=== PATIENT | female | born 1960 | race Hispanic/Latino ===

== ENCOUNTER 2018-12-01 07:39 | Emergency (ER) | payer OTHER ==
--- OUTSIDE RECORDS SUMMARY | 2018-12-01 07:41 | XMS REPORT ---
:1960 Author Organization e[employer]Works Care Team Providers Name Role Phone Ramos, Na Provider Role Unavailable Allergies No Known Allergies Problems Problem Type Condition Code Onset Dates Condition Status Problem Disturbance of skin sensation R20.9 Active Problem HTN (hypertension) I10 Active Problem Vertigo R42 Active Problem Elevated LFTs R94.5 Active Problem Multiple acquired skin tags L91.8 Active Problem Fatty liver K76.0 Active Problem Calculus of kidney and ureter N20.2 Active Problem Other irritable bowel syndrome K58.8 Active Problem Hyperlipidemia E78.5 Active Problem Dizziness R42 Active Problem Family history of liver cancer Z80.0 Active Problem Hypothyroidism, unspecified E03.9 Active Problem Gastro-esophageal reflux disease with K21.0 Active esophagitis Problem Mixed irritable bowel syndrome K58.2 Active Problem Diabetes mellitus type 2, E11.9 Active uncontrolled, without complications Medications No Known Medications Results No Known Results Summary Purpose [employer] Submission
--- OUTSIDE RECORDS SUMMARY | 2018-12-01 07:41 | XMS REPORT ---
:1960 Author Organization [employer]Works Care Team Providers Name Role Phone Ramos, Na Provider Role Unavailable Allergies, Adverse Reactions, Alerts Substance Reaction Event Type tetracycline Info Not Available Drug Allergy codeine Info Not Available Drug Allergy Problems Problem Type Condition Code Onset Dates [...] Hyperlipidemia E78.5 Active Problem Dizziness R42 Active Assessment Multiple acquired skin tags L91.8 Active Problem Family history of liver cancer Z80.0 Active Problem Hypothyroidism, unspecified E03.9 Active Problem Gastro-esophageal reflux disease with K21.0 Active esophagitis Problem Mixed irritable bowel syndrome K58.2 Active Problem Diabetes mellitus type 2, E11.9 Active uncontrolled, without complications Medications Medication Code Code Instructions Start End Status Dosage System Date Date Allopurinol [facility] 49554546892 100 MG Orally Active 1 tablet Once a day Simvastatin ND 66920936394 20 MG Orally Active 1 tablet Once a day in the evening Levothyroxine ND 61459144479 125 MCG Orally Active 1 tablet Sodium Once a day on an empty stomach in the morning Altace ND 84897192564 2.5 MG Orally Active 1 capsule Once a day Levothyroxine ND 70219870573 100 MCG Orally Active 1 tablet Sodium Once a day on an empty stomach in the morning Flonase ND 03654936983 50 MCG/ACT Active 1 spray in Nasally Once a each day nostril Ramipril ND 58334765465 2.5 MG Orally Active 1 capsule Once a day Kombiglyze XR ND 76119534046 5-1000 MG Active 1 tablet Orally Once a with day evening meal Results Name Result Date Reference Range Unit Abnormality Flag TISSUE PATHOLOGY Summary Purpose [employer]ClinicalWorks Submission
--- OUTSIDE RECORDS SUMMARY | 2018-12-01 07:41 | XMS REPORT ---
[...] Start End Status Dosage System Date Date Levothyroxine [facility] 11269600650 100 MCG Orally Active 1 tablet Sodium Once a day on an empty stomach in the morning Results No Known Results Summary Purpose [employer]ClinicalWorks Submission
--- OUTSIDE RECORDS SUMMARY | 2018-12-01 07:41 | XMS REPORT ---
[...] R42 Active Problem Elevated LFTs R94.5 Active Assessment Mixed irritable bowel syndrome K58.2 Active Problem Multiple acquired skin tags L91.8 Active Assessment Fatty liver K76.0 Active Assessment Elevated LFTs R94.5 Active Problem Fatty liver K76.0 Active Problem Calculus of kidney and ureter N20.2 Active Problem Other irritable bowel syndrome K58.8 Active Problem Hyperlipidemia E78.5 Active Problem Dizziness R42 Active Assessment HTN (hypertension) I10 Active Assessment Diabetes mellitus type 2, E11.9 Active uncontrolled, without complications Assessment Hypothyroidism, unspecified E03.9 Active Assessment Hyperlipidemia E78.5 Active Problem Family history of liver cancer Z80.0 Active Problem Hypothyroidism, unspecified E03.9 Active Problem Gastro-esophageal reflux disease with K21.0 Active esophagitis Assessment Multiple acquired skin tags L91.8 Active Problem Mixed irritable bowel syndrome K58.2 Active Problem Diabetes mellitus type 2, E11.9 Active uncontrolled, without complications Medications Medication Code System Code Instructions Start Date End Date Status Dosage Ramipril NDC 0 Active not defined Results No Known Results Summary Purpose [employer]ClinicalWorks Submission
[2018-12-01] MEDS ORDERED: NA CHLORIDE 0.9% 1,000 ML ONE (08:21)
[2018-12-01] MEDS ORDERED: ONDANSETRON 4 MG/2 ML VIAL ONE (08:23)
[2018-12-01 08:26] LABS: Absolute Lymphocytes (CBC) 2.3 K/uL (0.7-4.9); Absolute Monocytes 0.6 K/uL (0.1-1.3); Absolute Neutrophil 9.7 K/uL (1.8-8.0); Basophils % 0.5 % (0-1.3); Eosinophils % 0.6 % (0-4.4); Hematocrit 43.1 % (36.0-45.0); Lymphocytes % 18.2 % (15.3-44.8); MPV 9.6 fL (7.6-11.3); Monocytes % 4.8 % (3.3-12.3); RBC Red Blood Cell Count 4.86 M/uL (3.86-4.86)
[2018-12-01 09:03] LABS: Potassium 3.8 mmol/L (3.5-5.1)
--- NOTE | 2018-12-01 09:49 | RAD REPORT ---
EXAM DESCRIPTION: CTAbdomen Pelvis W Contrast - 12/01/2018 9:35 am CLINICAL HISTORY: Abdominal pain. iv contrast only;Abd pain COMPARISON: Abdomen Pelvis W Contrast dated 02/14/2018; CT-STONE PROTOCOL dated 01/28/2010 TECHNIQUE: Biphasic CT imaging of the abdomen and pelvis was performed with 100 ml non-ionic IV cont rast. All CT scans are performed using dose optimization technique as appropriate and may include automated exposure control or mA/KV adjustment according to patient size. FINDINGS: Emphysematous changes are present in the lung bases with mild linear subsegmental atelecta sis is present. Mild fatty liver is present. No focal mass or intrahepatic biliary dilatation. Spleen is surgically a bsent with prominent splenule in the left upper quadrant. The pancreas shows fullness in the tail reg ion, unchanged. No pancreatic ductal dilatation. The adrenal glands are normal. Bilateral renal stone s are present without hydronephrosis. No bowel obstruction, free air, free fluid or abscess. The appendix appears absent. Inflammatory piper ges are seen surrounding a prominent diverticulum in the left lower quadrant sigmoid colon. The regio n of inflamed sigmoid colon measures about 5 cm in length. No abscess present. No evidence of signif icant lymphadenopathy. No suspicious bony findings. IMPRESSION: Mild left lower quadrant acute sigmoid diverticulitis without abscess.
--- NOTE | 2018-12-01 09:58 | EDPHYS ---
Physician Documentation [facility] Name: Marcela Palomo Age: 58 yrs Sex: Female : 1960 Arrival Date: 12/01/2018 Time: 07:41 Bed 5 Private MD: Jordyn Ramos ED Physician Vee Lazaro HPI: 12/01 09:56 This 58 yrs old Female presents to ER via Ambulatory with complaints of kb Abdominal Pain. 09:56 The patient presents with abdominal pain in the left lower quadrant. Onset: The kb symptoms/episode began/occurred yesterday. The symptoms do not radiate. Associated signs and symptoms: none. The symptoms are described as achy. Modifying factors: The symptoms are alleviated by nothing, the symptoms are aggravated by pressure. Severity of pain: At its worst the pain was moderate in the emergency department the pain is unchanged. The patient has not experienced similar symptoms in the past. The patient has not recently seen a physician. Historical: - Allergies: 07:58 codeine (nausea/vomiting); ss - PMHx: 07:58 Diabetes - NIDDM; IBS; Kidney stones; Diverticulitis; ss - PSHx: 07:58 splenectomy; Appendectomy; Hysterectomy; ss - Immunization history:: Adult Immunizations up to date. - Social history:: Smoking status: Patient/guardian denies using tobacco. - Ebola Screening: : Patient denies exposure to infectious person Patient denies travel to an Ebola-affected area in the 21 days before illness onset. ROS: 09:55 Constitutional: Negative for fever, chills, and weight loss, Cardiovascular: Negative kb for chest pain, palpitations, and edema, Respiratory: Negative for shortness of breath, cough, wheezing, and pleuritic chest pain, Back: Negative for injury and pain, : Negative for injury, bleeding, discharge, and swelling, MS/Extremity: Negative for injury and deformity, Skin: Negative for injury, rash, and discoloration, Neuro: Negative for headache, weakness, numbness, tingling, and seizure. 09:55 Abdomen/GI: Positive for abdominal pain, Negative for nausea, vomiting, and diarrhea, constipation, abdominal cramps, abdominal distension, anorexia. Exam: 09:55 Constitutional: This is a well developed, well nourished patient who is awake, alert, kb and in no acute distress. Head/Face: Normocephalic, atraumatic. Chest/axilla: Normal chest wall appearance and motion. Nontender with no deformity. No lesions are appreciated. Cardiovascular: Regular rate and rhythm with a normal S1 and S2. No gallops, murmurs, or rubs. Normal PMI, no JVD. No pulse deficits. Respiratory: Lungs have equal breath sounds bilaterally, clear to auscultation and percussion. No rales, rhonchi or wheezes noted. No increased work of breathing, no retractions or nasal flaring. Back: No spinal tenderness. No costovertebral tenderness. Full range of motion. Skin: Warm, dry with normal turgor. Normal color with no rashes, no lesions, and no evidence of cellulitis. MS/ Extremity: Pulses equal, no cyanosis. Neurovascular intact. Full, normal range of motion. Neuro: Awake and alert, GCS 15, oriented to person, place, time, and situation. Cranial nerves II-XII grossly intact. Motor strength 5/5 in all extremities. Sensory grossly intact. Cerebellar exam normal. Normal gait. 09:55 Abdomen/GI: Inspection: abdomen appears normal, Bowel sounds: normal, in all quadrants, Palpation: soft, in all quadrants, moderate abdominal tenderness, in the left lower quadrant. Vital Signs: 07:58 BP 136 / 81; Pulse 110; Resp 16; Temp 98.9(O); Pulse Ox 95% on R/A; Weight 92.53 kg; ss Height 5 ft. 1 in. (154.94 cm); Pain 10/10; 08:29 BP 132 / 85; Pulse 96; Resp 17; Pulse Ox 95% on R/A; ss 09:06 BP 127 / 81; Pulse 93; Resp 18; Pulse Ox 97% on R/A; ca1 09:40 BP 137 / 74; Pulse 92; Resp 18; Pulse Ox 97% ; ca1 07:58 Body Mass Index 38.55 (92.53 kg, 154.94 cm) ss MDM: 07:44 Patient medically screened. kb 09:52 Data reviewed: vital signs, nurses notes. Data interpreted: Pulse oximetry: on room air kb is 97 %. Interpretation: normal. Counseling: I had a detailed discussion with the patient and/or guardian regarding: the historical points, exam findings, and any diagnostic results supporting the discharge/admit diagnosis, lab results, radiology results, the need for outpatient follow up, a family practitioner, to return to the emergency department if symptoms worsen or persist or if there are any questions or concerns that arise at home. ED course: Pt given the option of admission or trial outpatient antibiotics first. Pt would like to go home. Will send home with cipro and flagyl. Pt given instructions to return for worsening symptoms/pain, inability to tolerate medications or any other concerns. Verbal understanding received. . 12/01 07:54 Order name: Basic Metabolic Panel; Complete Time: 09:08 kb 12/01 07:54 Order name: CBC with Diff; Complete Time: 08:30 kb 12/01 07:54 Order name: CT Abd/Pelvis - W/Contrast; Complete Time: 09:50 kb 12/01 08:02 Order name: Urine Dipstick--Ancillary (enter results) bd 12/01 07:54 Order name: IV Saline Lock; Complete Time: 08:09 kb 12/01 07:54 Order name: Labs collected and sent; Complete Time: 08:09 kb 12/01 07:54 Order name: Urine Dipstick-Ancillary (obtain specimen); Complete Time: 08:04 kb Administered Medications: 07:58 CANCELLED (Physician Discretion): TORadol 30 mg IVP once kb 08:12 Drug: NS 0.9% 1000 ml Route: IV; Rate: 1000 ml; Site: right antecubital; ca1 09:10 Follow up: Response: No adverse reaction; IV Status: Completed infusion ca1 08:13 Drug: Zofran 4 mg Route: IVP; Site: right antecubital; ca1 09:51 Follow up: Response: No adverse reaction; Nausea is decreased ca1 09:55 Drug: Flagyl 500 mg Route: PO; ca1 10:07 Follow up: Response: Medication administered at discharge. ca1 09:58 Drug: Cipro 500 mg Route: PO; ca1 10:06 Follow up: Response: Medication administered at discharge. ca1 Disposition: 17:43 Co-signature as Attending Physician, Vee Lazaro MD. ma2 Disposition: 12/01/18 09:57 Discharged to Home. Impression: Diverticulitis of intestine, part unspecified, without perforation or abscess without bleeding. - Condition is Stable. - Discharge Instructions: Diverticulitis, [id number]. - Prescriptions for Flagyl 500 mg Oral Tablet - take 1 tablet by ORAL route every 8 hours for 10 days; 30 tablet. Zofran 4 mg Oral Tablet - take 1 tablet by ORAL route every 6 hours As needed; 20 tablet. Cipro 500 mg Oral Tablet - take 1 tablet by ORAL route every 12 hours for 10 days; 20 tablet. Tramadol 50 mg Oral Tablet - take 1 tablet by ORAL route every 8 hours as needed; 12 tablet. - Medication Reconciliation Form, Thank You Letter, Antibiotic Education, Prescription Opioid Use form. - Follow up: Emergency Department; When: As needed; Reason: Worsening of condition. Follow up: Private Physician; When: 2 - 3 days; Reason: Recheck today's complaints, Continuance of care, Re-evaluation by your physician. Signatures: Dispatcher [employer] EDMS Shirley Elkins, YOSSI-C [employer]ICE PRESIDENT FOR [employer]STRUCTION-Batsheva Negron RN RN aa5 Anisha Dumont RN RN ss Vee Lazaro MD MD ma2 Ruth Weber RN RN ca1 Corrections: (The following items were deleted from the chart) 07:58 07:58 TORadol 30 mg IVP once ordered. kb kb 10:13 09:57 12/01/2018 09:57 Discharged to Home. Impression: Diverticulitis of intestine, aa5 part unspecified, without perforation or abscess without bleeding. Condition is Stable. Forms are Medication Reconciliation Form, Thank You Letter, Antibiotic Education, Prescription Opioid Use. Follow up: Emergency Department; When: As needed; Reason: Worsening of condition. Follow up: Private Physician; When: 2 - 3 days; Reason: Recheck today's complaints, Continuance of care, Re-evaluation by your physician. kb
--- NOTE | 2018-12-01 09:58 | ER ---
Nurse's Notes [facility] Name: Marcela Palomo Age: 58 yrs Sex: Female : 1960 Arrival Date: 12/01/2018 Time: 07:41 Bed 5 Private MD: Jordyn Ramos Diagnosis: Diverticulitis of intestine, part unspecified, without perforation or abscess without bleeding Presentation: 12/01 07:55 Presenting complaint: Patient states: LLQ pain that began yesterday. PT reports a ss history of diverticulitis. Transition of care: patient was not received from another setting of care. Onset of symptoms was November 30, 2018. Risk Assessment: Do you want to hurt yourself or someone else? Patient reports no desire to harm self or others. Initial Sepsis Screen: Does the patient meet any 2 criteria? No. Patient's initial sepsis screen is negative. Does the patient have a suspected source of infection? No. Patient's initial sepsis screen is negative. Care prior to arrival: None. 07:55 Method Of Arrival: Ambulatory ss 07:55 Acuity: THERESA 3 ss Historical: - Allergies: 07:58 codeine (nausea/vomiting); ss - PMHx: 07:58 Diabetes - NIDDM; IBS; Kidney stones; Diverticulitis; ss - PSHx: 07:58 splenectomy; Appendectomy; Hysterectomy; ss - Immunization history:: Adult Immunizations up to date. - Social history:: Smoking status: Patient/guardian denies using tobacco. - Ebola Screening: : Patient denies exposure to infectious person Patient denies travel to an Ebola-affected area in the 21 days before illness onset. Screenin:19 Abuse screen: Denies threats or abuse. Denies injuries from another. Nutritional ca1 screening: No deficits noted. Tuberculosis screening: No symptoms or risk factors identified. Fall Risk None identified. Assessment: 08:19 General: Appears in no apparent distress. uncomfortable, Behavior is calm, cooperative. ca1 Pain: Complains of pain in right lower quadrant and left lower quadrant Pain does not radiate. Pain currently is 10 out of 10 on a pain scale. Quality of pain is described as crampy, Pain began 2-3 days ago. Is intermittent, Aggravated by bending over. Neuro: Level of Consciousness is awake, alert, obeys commands, Oriented to person, place, time, situation. Cardiovascular: Heart tones S1 S2 present Capillary refill < 3 seconds Patient's skin is warm and dry. Respiratory: Airway is patent Trachea midline Respiratory effort is even, unlabored, Respiratory pattern is regular, symmetrical, Breath sounds are clear bilaterally. GI: Abdomen is round non-distended, Bowel sounds present X 4 quads. Abd is soft Abdomen is tender to palpation in right lower quadrant and left lower quadrant Reports nausea, Patient currently denies diarrhea. : No signs and/or symptoms were reported regarding the genitourinary system. EENT: No signs and/or symptoms were reported regarding the EENT system. Derm: Skin is intact, is healthy with good turgor, Skin is pink, warm \T\ dry. Musculoskeletal: Circulation, motion, and sensation intact. 09:06 Reassessment: Patient appears in no apparent distress at this time. Patient and/or ca1 family updated on plan of care and expected duration. Pain level reassessed. Patient is alert, oriented x 3, equal unlabored respirations, skin warm/dry/pink. 09:39 Reassessment: Patient appears in no apparent distress at this time. Patient is alert, ca1 oriented x 3, equal unlabored respirations, skin warm/dry/pink. Patient back from CT. 10:11 Reassessment: Patient is alert, oriented x 3, equal unlabored respirations, skin aa5 warm/dry/pink. Vital Signs: 07:58 BP 136 / 81; Pulse 110; Resp 16; Temp 98.9(O); Pulse Ox 95% on R/A; Weight 92.53 kg; ss Height 5 ft. 1 in. (154.94 cm); Pain 10/10; 08:29 BP 132 / 85; Pulse 96; Resp 17; Pulse Ox 95% on R/A; ss 09:06 BP 127 / 81; Pulse 93; Resp 18; Pulse Ox 97% on R/A; ca1 09:40 BP 137 / 74; Pulse 92; Resp 18; Pulse Ox 97% ; ca1 07:58 Body Mass Index 38.55 (92.53 kg, 154.94 cm) ED Course: 07:41 Patient arrived in ED. dl4 07:41 Jordyn Ramos MD is Private Physician. dl4 07:44 Shirley Elkins [facility]C [facility] kb 07:44 Vee Lazaro MD is Attending Physician. kb 07:55 Anisha Dumont, ADITYA is Primary Nurse. ss 07:56 Triage completed. ss 07:58 Arm band placed on right wrist. ss 08:05 Patient has correct armband on for positive identification. Placed in gown. Bed in low ca1 position. Call light in reach. Side rails up X 1. 08:05 Pulse ox on. NIBP on. Warm blanket given. ca1 08:06 Initial lab(s) drawn, by me, sent to lab. Inserted saline lock: 20 gauge in right ca1 antecubital area, using aseptic technique. Blood collected. 08:32 Radiology exam delayed due to lab results not completed at this time. (BUN/Creatinine). kw1 09:29 CT completed. Patient tolerated procedure well. Patient moved to CT via wheelchair. sj Patient moved back from CT. 09:36 CT Abd/Pelvis - W/Contrast In Process Unspecified. EDMS 10:11 No provider procedures requiring assistance completed. IV discontinued, intact, aa5 bleeding controlled, No redness/swelling at site. Pressure dressing applied. Administered Medications: 07:58 CANCELLED (Physician Discretion): TORadol 30 mg IVP once kb 08:12 Drug: NS 0.9% 1000 ml Route: IV; Rate: 1000 ml; Site: right antecubital; ca1 09:10 Follow up: Response: No adverse reaction; IV Status: Completed infusion ca1 08:13 Drug: Zofran 4 mg Route: IVP; Site: right antecubital; ca1 09:51 Follow up: Response: No adverse reaction; Nausea is decreased ca1 09:55 Drug: Flagyl 500 mg Route: PO; ca1 10:07 Follow up: Response: Medication administered at discharge. ca1 09:58 Drug: Cipro 500 mg Route: PO; ca1 10:06 Follow up: Response: Medication administered at discharge. ca1 Outcome: 09:57 Discharge ordered by . kb 10:12 Discharged to home ambulatory, with family. aa5 10:12 Condition: stable 10:12 Discharge instructions given to patient, Instructed on discharge instructions, follow up and referral plans. medication usage, Demonstrated understanding of instructions, follow-up care, medications, Prescriptions given X 4. 10:13 Patient left the ED. aa5 Signatures: Dispatcher [employer] EDMS Shirley Elkins, FÉLIXC YOSSI-Jessika Monique Audri, RN RN aa5 Anisha Dumont RN RN ss Roxie Gan1 Mo Gross dl4 Ruth Weber RN RN ca1
[2018-12-01] MEDS ORDERED: metroNIDAZOLE 500 MG TABLET ONE (10:14)
[2018-12-01] MEDS ORDERED: CIPROFLOXACIN HCL 500 MG TAB ONE (10:14)
[2018-12-01 10:35] VITALS: TEMP 98.9
[2018-12-01 10:38] VITALS: O2SAT 97
[2018-12-01 10:39] VITALS: BP 137/74
[2018-12-01 16:34] LABS: Urine Blood 1+ (NEG); Urine Glucose NEGATIVE (NEG); Urine Protein TRACE (NEG)
== END 2018-12-01 10:13 | disposition home or self-care (01) ==
LOC: ER 07:39
DX: K57.92 Diverticulitis of intestine, part unspecified, without perforation or abscess without bleeding (principal); Z88.5 Allergy status to narcotic agent
CPT/HCPCS: 36415; 74177; 80048; 81003; 85025; 96361; 96374; 99284; J2405; J7030; Q9967

== ENCOUNTER 2022-04-04 01:20 | Emergency (ER) | payer OTHER ==
--- OUTSIDE RECORDS SUMMARY | 2022-04-04 01:24 | XMS REPORT | Continuity of Care Document ---
:1960 Author Organization [facility] t Address [address] [place] [address] Care Team Providers Name Role Phone Unavailable Unavailable Unavailable Problems Condition Condition Condition Status Onset Resolution Last Treating Co mments Source Name Details Category Date Date Treatment Clinician Date Disturbanc Disturbanc Problem Active C ommon e of skin e of skin Spir it sensation sensation - [facility] HTN HTN Problem Active Common (hypertens (hypertens Sp carlos alberto ion) ion) [facility] Vertigo Vertigo Problem Active Common [facility] Elevated Elevated Problem Active Commo n LFTs LFTs [facility] 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[facility] syndrome syndrome [facility] Multiple Multiple Problem Active Commo n acquired acquired Spirit skin tags skin tags - [facility] Fatty Fatty Problem Active Common liver liver [facility] Calculus Calculus Problem Active Commo n of kidney of kidney Spir it and ureter and ureter - [facility] Other Other Problem Active Common irritable irritable Spir it bowel bowel - [facility] syndrome syndrome [facility] Hyperlipid Hyperlipid Problem Active C ommon emia emia [facility] Diabetes Diabetes Problem Active Commo n mellitus mellitus Spirit type 2, type 2, - [facility] uncontroll uncontroll St ed, ed, [facility] without without Medical complicati complicati Ce nter ons ons Hypothyroi Hypothyroi Problem Active C ommon dism, dism, Spirit unspecifie unspecifie - [facility] d d [facility] Family Family Problem Active Common history of history of Sp carlos alberto liver liver - [facility] cancer cancer [facility] Gastro-eso Gastro-eso Problem Active C ommon phageal phageal Spirit reflux reflux - [facility] disease disease St with with [facility] esophagiti esophagiti [facility] Stress Stress Problem Active [facility] Anxiety Anxiety Problem Active [facility] Seasonal Seasonal Problem Active Commo n allergies allergies [facility] Allergies, Adverse Reactions, Alerts Allergy Allergy Status Severity Reaction(s) Onset Inactive Treating Comm ents Source Name Type Date Date Clinician tetracyc Adverse Active Info Not Commo n line Reaction Available [facility] codeine Adverse Active Info Not Common Reaction Available [facility] Medications Ordered Filled Start Stop Current Ordering Indication Dosage Frequency Signature Comments Components Source Medication Medication Date Date Medication? Clinician (SIG) Name Name Erythromyci Erythromyci 2018- 2019- No Na Ramos 1 Common n n 07-[address] [facility] 00:00: 00:00 [facility] 00 :00 [facility] Altace Altace Yes Na Ramos 1 capsule Com mon [facility] Kombiglyze Kombiglyze Yes Na Ramos 1 tablet Common XR XR with [facility] meal [facility] Flonase Flonase Yes Na Ramos [address] [facility] nostril [facility] Simvastatin Simvastatin Yes Na Ramos 1 tablet Common in the [facility] Ramipril Ramipril Yes Na Ramos 1 capsule Common [facility] Levothyroxi Levothyroxi Yes Na Ramos 1 tablet Common ne Sodium ne Sodium on an Spir it empty - [facility] stomach in [facility] Bentyl Bentyl Yes Na Ramos 2 capsules Co mmon [facility] Levothyroxi Levothyroxi Yes Na Ramos 1 tablet Common ne Sodium ne Sodium on an Spir it empty - [facility] stomach in [facility] Allopurinol Allopurinol Na Ramos 1 tablet Common 12-30 [facility] 00:00 - [facility] :00 [facility] Procedures This patient has no known procedures. Encounters Start End Encounter Admission Attending Care Care Encounter Source Date/Time Date/Time Type Type Clinicians Facility Department ID 2020-01-21 2020-01-21 [facility] [id number] Common 14:37:00 14:37:[address] [facility] 2019-07-03 2019-07-03 [facility] [id number] Common 10:00:00 10:00:[address] [facility] 2019-02-04 2019-02-04 [facility] [id number] Common 12:26:00 12:26:[address] [facility] 2019-01-02 2019-01-02 [facility] [id number] Common 14:04:00 14:04:[address] [facility] 2019-01-02 2019-01-02 [facility] [id number] Common 09:00:00 09:00:[address] [facility] 2018-12-24 2018-12-24 [facility] [id number] Common 09:41:00 09:41:[address] [facility] 2018-12-22 2018-12-22 [facility] [id number] Common 15:31:00 15:31:[address] [facility] 2018-12-18 2018-12-18 [facility] [id number] Common 10:46:00 10:46:[address] [facility] 2018-12-03 2018-12-03 [facility] [id number] Common 08:30:00 08:30:[address] [facility] 2018-11-26 2018-11-26 [facility] [id number] Common 16:26:00 16:26:[address] [facility] 2018-11-25 2018-11-25 [facility] [id number] Common 08:00:00 08:00:[address] [facility] 2018-11-24 2018-11-24 [facility] [id number] Common 08:21:00 08:21:[address] [facility] 2018-11-10 2018-11-10 [facility] [id number] Common 14:00:00 14:00:[address] [facility] 2018-06-13 2018-06-13 [facility] [id number] Common 12:00:00 12:00:[address] [facility] 2018-06-10 2018-06-10 [facility] [id number] Common 09:15:00 09:15:[address] [facility] 2018-06-03 2018-06-03 [facility] [id number] Common 16:25:00 16:25:[address] [facility] 2018-05-30 2018-05-30 [facility] [id number] Common 09:45:00 09:45:[address] [facility] Results This patient has no known results.
[2022-04-04] MEDS ORDERED: CEFTRIAXONE 1000 MG/VIAL ONE (02:18)
[2022-04-04] MEDS ORDERED: NA CHLORIDE 0.9% 50 ML ONE (02:19)
[2022-04-04] MEDS ORDERED: NA CHLORIDE 0.9% 1,000 ML ONE (02:25)
[2022-04-04 02:30] LABS: Urine Blood Trace-intact (Negative); Urine Glucose 2+ (Negative); Urine Protein Negative (Negative); Urine pH 5.5 (5.0-7.0)
[2022-04-04 02:47] LABS: Absolute Lymphocytes (CBC) 2.1 K/uL (0.7-4.9); Hematocrit 40.6 % (36.0-45.0); Lymphocytes % 13.6 % (15.3-44.8); RBC Red Blood Cell Count 4.65 M/uL (3.86-4.86)
[2022-04-04 03:11] LABS: ALT/SGPT 58 U/L (12-78); AST/SGOT 31 U/L (15-37); Albumin 3.3 g/dL (3.4-5.0); Alkaline Phosphatase 110 U/L (45-117); BUN Blood Urea Nitrogen 23 mg/dL (7-18); Bicarbonate 21 mmol/L (21-32); Bilirubin Direct 0.1 mg/dL (0-0.2); Bilirubin Total 0.2 mg/dL (0.2-1.0); Glomerular Filtration Rate 49 ml/min (=/>90); Potassium 4.2 mmol/L (3.5-5.1); Protein, Total 7.5 g/dL (6.4-8.2); Sodium Level 134 mmol/L (136-145)
[2022-04-04 03:15] LABS: Glucose Level 499 mg/dL (74-106)
--- NOTE | 2022-04-04 05:41 | EDPHYS ---
Physician Documentation [facility] Name: Marcela Palomo Age: 61 yrs Sex: Female : 1960 Arrival Date: 04/04/2022 Time: 01:25 Bed 8 Private MD: ED Physician Michi Powell HPI: 04/04 02:20 This 61 yrs old Female presents to ER via Ambulatory with complaints of High mh7 Blood Sugar. 02:20 The patient or guardian reports hyperglycemia. mh7 02:20 Onset: The symptoms/episode began/occurred 2 day(s) ago. mh7 02:20 Associated signs and symptoms: Pertinent positives: polydipsia, polyuria, Pertinent mh7 negatives: anorexia, constipation, decreased urine output, diaphoresis, diarrhea, dry skin, hair loss, ketones in urine, nausea, polyphagia, seizure activity, skin flushing, urinary incontinence, vomiting. Current symptoms: In the emergency department the patient's symptoms have improved, moderately. Historical: - Allergies: 01:52 codeine (nausea/vomiting); vc1 01:52 Tetracycline; vc1 - Home Meds: 01:53 metformin 500 mg Oral tab 2 tabs 2 times per day [Active]; aspirin 81 mg Oral chew 1 vc1 tab once daily [Active]; levothyroxine 125 mcg tab 1 tab once daily [Active]; simvastatin 10 mg Oral tab 1 tab once daily [Active]; allopurinol 100 mg Oral tab 1 tab once daily [Active]; Carafate 1 gram Oral tab PRN [Active]; Fosamax 70 mg Oral tab 1 tab once wkly [Active]; omeprazole 20 mg Oral cpDR 1 cap once daily [Active]; magnesium oxide 250 mg magnesium Oral tab daily [Active]; B-12 DOTS 500 mcg oral tab daily [Active]; D3 DOTS 25 mcg oral tab daily [Active]; Stool Softener 100 mg oral cap 3 caps once daily [Active]; Culturelle oral [Active]; amlodipine 5 mg tab 1 tab once daily [Active]; AZO Standard 95 mg Oral tab 2 tab daily [Active]; meclizine 25 mg Oral chew 1 tab PRN [Active]; dicyclomine 10 mg Oral cap 1 cap PRN [Active]; inulin oral [Active]; - PMHx: 01:52 Diabetes - NIDDM; ibs; Diverticulitis; Kidney stones; Hypertensive disorder; High vc1 Cholesterol; - PSHx: 01:52 Hysterectomy; Thyroidectomy; Splenectomy; Appendectomy; vc1 - Immunization history:: Adult Immunizations up to date, Client reports receiving the 2nd dose of the Covid vaccine. - Social history:: Smoking status: Patient denies any tobacco usage or history of. ROS: 02:20 Constitutional: Negative for fever, chills, and weight loss, Eyes: Negative for injury, mh7 pain, redness, and discharge, ENT: Negative for injury, pain, and discharge, Neck: Negative for injury, pain, and swelling, Cardiovascular: Negative for chest pain, palpitations, and edema, Respiratory: Negative for shortness of breath, cough, wheezing, and pleuritic chest pain, Abdomen/GI: Negative for abdominal pain, nausea, vomiting, diarrhea, and constipation, Back: Negative for injury and pain, : Negative for injury, bleeding, discharge, and swelling, MS/Extremity: Negative for injury and deformity, Skin: Negative for injury, rash, and discoloration, Neuro: Negative for headache, weakness, numbness, tingling, and seizure, Psych: Negative for depression, anxiety, suicide ideation, homicidal ideation, and hallucinations, Allergy/Immunology: Negative for hives, rash, and allergies, Endocrine: Negative for neck swelling, polydipsia, polyuria, polyphagia, and marked weight changes, Hematologic/Lymphatic: Negative for swollen nodes, abnormal bleeding, and unusual bruising. Exam: 02:20 Constitutional: This is a well developed, well nourished patient who is awake, alert, mh7 and in no acute distress. Head/Face: Normocephalic, atraumatic. Eyes: Pupils equal round and reactive to light, extra-ocular motions intact. Lids and lashes normal. Conjunctiva and sclera are non-icteric and not injected. Cornea within normal limits. Periorbital areas with no swelling, redness, or edema. ENT: Nares patent. No nasal discharge, no septal abnormalities noted. Tympanic membranes are normal and external auditory canals are clear. Oropharynx with no redness, swelling, or masses, exudates, or evidence of obstruction, uvula midline. Mucous membranes moist. Neck: Trachea midline, no thyromegaly or masses palpated, and no cervical lymphadenopathy. Supple, full range of motion without nuchal rigidity, or vertebral point tenderness. No Meningismus. Chest/axilla: Normal chest wall appearance and motion. Nontender with no deformity. No lesions are appreciated. Cardiovascular: Regular rate and rhythm with a normal S1 and S2. No gallops, murmurs, or rubs. Normal PMI, no JVD. No pulse deficits. Respiratory: Lungs have equal breath sounds bilaterally, clear to auscultation and percussion. No rales, rhonchi or wheezes noted. No increased work of breathing, no retractions or nasal flaring. Abdomen/GI: Soft, non-tender, with normal bowel sounds. No distension or tympany. No guarding or rebound. No evidence of tenderness throughout. Back: No spinal tenderness. No costovertebral tenderness. Full range of motion. Skin: Warm, dry with normal turgor. Normal color with no rashes, no lesions, and no evidence of cellulitis. MS/ Extremity: Pulses equal, no cyanosis. Neurovascular intact. Full, normal range of motion. Neuro: Awake and alert, GCS 15, oriented to person, place, time, and situation. Cranial nerves II-XII grossly intact. Motor strength 5/5 in all extremities. Sensory grossly intact. Cerebellar exam normal. Normal gait. Psych: Awake, alert, with orientation to person, place and time. Behavior, mood, and affect are within normal limits. Vital Signs: 01:50 BP 139 / 89; Pulse 100; Resp 18; Temp 98.2(O); Pulse Ox 99% ; Weight 83.01 kg; Height 5 vc1 ft. 1 in. (154.94 cm); Pain 0/10; 02:30 BP 126 / 72; Pulse 89; Resp 18 S; Pulse Ox 97% on R/A; as6 03:33 BP 122 / 82; Pulse 81; Resp 18 S; Pulse Ox 99% on R/A; as6 04:15 BP 131 / 69; Pulse 79; Resp 18; Pulse Ox 97% ; ke1 05:57 BP 128 / 84; Pulse 81; Resp 18 S; Pulse Ox 98% on R/A; as6 01:50 Body Mass Index 34.58 (83.01 kg, 154.94 cm) vc1 MDM: 05:39 Differential diagnosis: DKA, hyperglycemia, Medication reaction. Data reviewed: vital [facility] signs, nurses notes, lab test result(s), CBC, electrolytes, urinalysis. Data interpreted: Pulse oximetry: on room air is 97 %. Interpretation: normal. Counseling: I had a detailed discussion with the patient and/or guardian regarding: the historical points, exam findings, and any diagnostic results supporting the discharge/admit diagnosis, lab results, the need for outpatient follow up, to return to the emergency department if symptoms worsen or persist or if there are any questions or concerns that arise at home. Response to treatment: the patient's symptoms have markedly improved after treatment. 05:41 Patient medically screened. [facility] 04/04 02:14 Order name: Glucose, Ancillary Testing; Complete Time: 02:15 EDMS 04/04 02:16 Order name: CBC with Diff; Complete Time: 03:05 [facility] 04/04 02:16 Order name: Basic Metabolic Panel; Complete Time: 03:49 [facility] 04/04 02:16 Order name: LFT's; Complete Time: 03:49 [facility] 04/04 02:16 Order name: Ketone, Serum; Complete Time: 03:49 [facility] 04/04 02:30 Order name: Urine Dipstick-Ancillary; Complete Time: 03:05 EDMS 04/04 02:16 Order name: Urine Dipstick-Ancillary (obtain specimen); Complete Time: 02:28 [facility] 04/04 02:16 Order name: Saline Lock; Complete Time: 02:28 [facility] 04/04 05:39 Order name: Glucose, Ancillary Testing; Complete Time: 05:46 EDMS Administered Medications: 02:28 Drug: NS 0.9% 1000 ml Route: IV; Rate: 1000 ml; Site: right antecubital; as6 05:57 Follow up: Response: No adverse reaction; IV Status: Completed infusion; IV Intake: as6 1000ml Disposition Summary: 04/04/22 05:41 Discharge Ordered Location: Home [facility] Problem: new [facility] Symptoms: have improved [facility] Condition: Stable [facility] Diagnosis - Type 2 diabetes mellitus with hyperglycemia [facility] Followup: [facility] - With: Private Physician - When: 1 - 2 days - Reason: Worsening of condition, Recheck today's complaints, Continuance of care, Re-evaluation by your physician Discharge Instructions: - Discharge Summary Sheet [facility] - Hyperglycemia [facility] Forms: - Medication Reconciliation Form [facility] - Thank You Letter 7 - Antibiotic Education 7 - Prescription Opioid Use [facility] Signatures: Dispatcher [employer] Michi Byrne MD MD mh7 Khari Purvis RN RN as6 Tasneem Paris RN RN vc1 Terri Wei PA PA sb3
--- NOTE | 2022-04-04 05:41 | ER ---
Nurse's Notes [facility] Name: Marcela Palomo Age: 61 yrs Sex: Female : 1960 Arrival Date: 04/04/2022 Time: 01:25 Bed 8 Private MD: Diagnosis: Type 2 diabetes mellitus with hyperglycemia Presentation: 04/04 01:50 Chief complaint: Patient states: "I'm a diabetic and I have been having issues with my vc1 ears so they put me on a steroid. They said it might make my blood sugar go up and it went up to 534.". Coronavirus screen: Vaccine status: Patient reports receiving the 2nd dose of the covid vaccine. Moderna At this time, the client does not indicate any symptoms associated with coronavirus-19. Ebola Screen: No symptoms or risks identified at this time. Initial Sepsis Screen: Does the patient meet any 2 criteria? HR > 90 bpm. No. Patient's initial sepsis screen is negative. Does the patient have a suspected source of infection? No. Patient's initial sepsis screen is negative. Risk Assessment: Do you want to hurt yourself or someone else? Patient reports no desire to harm self or others. Onset of symptoms was April 04, 2022. 01:50 Method Of Arrival: Ambulatory vc1 01:50 Acuity: THERESA 3 vc1 Triage Assessment: 01:53 General: Appears in no apparent distress. Behavior is calm, cooperative, appropriate vc1 for age. Pain: Denies pain. Historical: - Allergies: 01:52 codeine (nausea/vomiting); vc1 01:52 Tetracycline; vc1 - Home Meds: 01:53 metformin 500 mg Oral tab 2 tabs 2 times per day [Active]; aspirin 81 mg Oral chew 1 vc1 tab once daily [Active]; levothyroxine 125 mcg tab 1 tab once daily [Active]; simvastatin 10 mg Oral tab 1 tab once daily [Active]; allopurinol 100 mg Oral tab 1 tab once daily [Active]; Carafate 1 gram Oral tab PRN [Active]; Fosamax 70 mg Oral tab 1 tab once wkly [Active]; omeprazole 20 mg Oral cpDR 1 cap once daily [Active]; magnesium oxide 250 mg magnesium Oral tab daily [Active]; B-12 DOTS 500 mcg oral tab daily [Active]; D3 DOTS 25 mcg oral tab daily [Active]; Stool Softener 100 mg oral cap 3 caps once daily [Active]; Culturelle oral [Active]; amlodipine 5 mg tab 1 tab once daily [Active]; AZO Standard 95 mg Oral tab 2 tab daily [Active]; meclizine 25 mg Oral chew 1 tab PRN [Active]; dicyclomine 10 mg Oral cap 1 cap PRN [Active]; inulin oral [Active]; - PMHx: 01:52 Diabetes - NIDDM; ibs; Diverticulitis; Kidney stones; Hypertensive disorder; High vc1 Cholesterol; - PSHx: 01:52 Hysterectomy; Thyroidectomy; Splenectomy; Appendectomy; vc1 - Immunization history:: Adult Immunizations up to date, Client reports receiving the 2nd dose of the Covid vaccine. - Social history:: Smoking status: Patient denies any tobacco usage or history of. Screenin:30 Abuse screen: Denies threats or abuse. Denies injuries from another. Nutritional as6 screening: No deficits noted. Tuberculosis screening: No symptoms or risk factors identified. Fall Risk None identified. Assessment: 02:29 General: Appears in no apparent distress. Behavior is calm, cooperative. Pain: Denies as6 pain. Neuro: [place] Agitation-Sedation Scale (RASS): 0 - Alert and Calm Level of Consciousness is awake, alert, obeys commands, Oriented to person, place, time, situation, Appropriate for age. Cardiovascular: JVD is absent Patient's skin is warm and dry. Respiratory: Airway is patent Trachea midline Respiratory effort is even, unlabored, Respiratory pattern is regular, symmetrical. 03:33 Reassessment: Patient appears in no apparent distress at this time. No changes from as6 previously documented assessment. Patient and/or family updated on plan of care and expected duration. Pain level reassessed. Patient is alert, oriented x 3, equal unlabored respirations, skin warm/dry/pink. Vital Signs: 01:50 BP 139 / 89; Pulse 100; Resp 18; Temp 98.2(O); Pulse Ox 99% ; Weight 83.01 kg; Height 5 vc1 ft. 1 in. (154.94 cm); Pain 0/10; 02:30 BP 126 / 72; Pulse 89; Resp 18 S; Pulse Ox 97% on R/A; as6 03:33 BP 122 / 82; Pulse 81; Resp 18 S; Pulse Ox 99% on R/A; as6 04:15 BP 131 / 69; Pulse 79; Resp 18; Pulse Ox 97% ; ke1 05:57 BP 128 / 84; Pulse 81; Resp 18 S; Pulse Ox 98% on R/A; as6 01:50 Body Mass Index 34.58 (83.01 kg, 154.94 cm) vc1 ED Course: 01:25 Patient arrived in ED. bp1 01:52 Triage completed. vc1 02:00 Arm band placed on left wrist. vc1 02:14 Michi Powell MD is Attending Physician. mh7 02:18 Khari Purvis, RN is Primary Nurse. as6 02:23 Inserted saline lock: 20 gauge in right antecubital area, using aseptic technique. as6 Blood collected. 02:30 Bed in low position. Call light in reach. Side rails up X 1. Adult w/ patient. Pulse ox as6 on. NIBP on. 05:57 No provider procedures requiring assistance completed. IV discontinued, intact, as6 bleeding controlled, No redness/swelling at site. Pressure dressing applied. Administered Medications: 02:28 Drug: NS 0.9% 1000 ml Route: IV; Rate: 1000 ml; Site: right antecubital; as6 05:57 Follow up: Response: No adverse reaction; IV Status: Completed infusion; IV Intake: as6 1000ml Medication: 02:30 VIS not applicable for this client. as6 Intake: 05:57 IV: 1000ml; Total: 1000ml. as6 Outcome: 05:41 Discharge ordered by . mh7 05:57 Discharged to home ambulatory, with significant other. as6 05:57 Condition: stable 05:57 Discharge instructions given to patient, Instructed on discharge instructions, follow up and referral plans. medication usage, Demonstrated understanding of instructions, follow-up care, medications, Prescriptions given X 1. 05:58 Patient left the ED. as6 Signatures: María Wilson bp1 Michi Powell MD MD [facility] Khari Purvis, ADITYA RN as6 Tasneem Paris RN RN vc1 Rosemarie Fitzpatrick RN RN ke1
[2022-04-04 06:06] VITALS: TEMP 98.2
[2022-04-04 06:11] VITALS: BP 128/84; O2SAT 98
== END 2022-04-04 05:58 | disposition home or self-care (01) ==
LOC: ER 01:20
DX: E11.65 Type 2 diabetes mellitus with hyperglycemia (principal); I10 Essential (primary) hypertension; E78.00 Pure hypercholesterolemia, unspecified; Z88.1 Allergy status to other antibiotic agents; Z88.5 Allergy status to narcotic agent; Z87.442 Personal history of urinary calculi
CPT/HCPCS: 96361; 85025; 80048; 36415; 82010; 82947 ×2; 80076; 81003; 96360; 99284; J7030